=== PATIENT | male | born 1945 | race Caucasian/White ===

== ENCOUNTER 2023-02-25 21:48 | Inpatient (IN) | payer OTHER ==
[~2023-02-25] VITALS: Ht 177.8 cm; Wt 50.5 kg
[2023-02-25] MEDS ORDERED: ASPIR 8181 M1 PO (22:34)
[2023-02-25] MEDS ORDERED: Lisinopril2.5 MG PO (22:34)
[2023-02-25] MEDS ORDERED: JARDIANCE10 MG PO (22:34)
[2023-02-25] MEDS ORDERED: ATOR10 PO (22:35)
[2023-02-25] MEDS ORDERED: GLIP2.5ER PO (22:35)
[2023-02-25] MEDS ORDERED: METF500 PO (22:36)
[2023-02-25 22:39] LABS: BASOPHILS ABSOLUTE AUTO 0.04 K/mm3 (0.00-0.23); BASOPHILS PERCENT AUTO 1 % (0-2); EOSINOPHILS ABSOLUTE AUTO 0.22 K/mm3 (0.00-0.68); EOSINOPHILS PERCENT AUTO 4 % (0-6); Hematocrit 33.6 % (37.0-53.0); Hemoglobin 10.4 g/dL (13.5-17.5); IMMATURE GRAN ABSOLUTE AUTO 0.01 K/mm3 (0.00-0.10); IMMATURE GRAN PERCENT AUTO 0 % (0-1); LYMPHOCYTES ABSOLUTE AUTO 1.53 K/mm3 (0.84-5.20); LYMPHOCYTES PERCENT AUTO 26 % (21-46); MONOCYTES ABSOLUTE AUTO 0.55 K/mm3 (0.16-1.47); MONOCYTES PERCENT AUTO 9 % (4-13); Mean Corpuscular HGB 27.7 pg (26.0-34.0); Mean Corpuscular Volume 89 fL (80-100); Mean Platelet Volume 10.1 fL (9.1-12.4); NEUTROPHILS ABSOLUTE AUTO 3.55 K/mm3 (1.96-9.15); NEUTROPHILS PERCENT AUTO 60 % (41-73); Platelet Count 177 K/mm3 (150-400); RDW Coefficient Variation 14.8 % (11.7-14.2); RDW Standard Deviation 47.7 fL (35.1-46.3); Red Blood Cell Count 3.76 M/mm3 (4.30-5.90)
[2023-02-25 22:41] LABS: Albumin, Blood 3.6 g/dL (3.4-5.0); Bilirubin, Total 0.2 mg/dL (0.1-1.0); Calcium, Blood 9.2 mg/dL (8.5-10.1); Creatinine, Blood 1.04 mg/dL (0.60-1.20); Globulin, Blood 3.6 g/dL (2.2-4.0); Potassium, Blood 4.3 mmol/L (3.5-5.5); Total Protein, Blood 7.2 g/dL (6.4-8.2)
[2023-02-26] VITALS (47 sets, daily range): BP systolic 104–158; BP diastolic 53–98
[2023-02-26 00:01] LABS: BASOPHILS ABSOLUTE AUTO 0.04 K/mm3 (0.00-0.23); BASOPHILS PERCENT AUTO 1 % (0-2); EOSINOPHILS ABSOLUTE AUTO 0.18 K/mm3 (0.00-0.68); EOSINOPHILS PERCENT AUTO 3 % (0-6); Hematocrit 31.5 % (37.0-53.0); Hemoglobin 9.9 g/dL (13.5-17.5); IMMATURE GRAN ABSOLUTE AUTO 0.02 K/mm3 (0.00-0.10); IMMATURE GRAN PERCENT AUTO 0 % (0-1); LYMPHOCYTES ABSOLUTE AUTO 1.08 K/mm3 (0.84-5.20); LYMPHOCYTES PERCENT AUTO 16 % (21-46); MONOCYTES ABSOLUTE AUTO 0.49 K/mm3 (0.16-1.47); MONOCYTES PERCENT AUTO 7 % (4-13); Mean Corpuscular HGB 27.8 pg (26.0-34.0); Mean Corpuscular HGB Conc 31.4 g/dL (31.5-36.5); Mean Corpuscular Volume 89 fL (80-100); Mean Platelet Volume 10.2 fL (9.1-12.4); NEUTROPHILS ABSOLUTE AUTO 4.87 K/mm3 (1.96-9.15); NEUTROPHILS PERCENT AUTO 73 % (41-73); Platelet Count 157 K/mm3 (150-400); RDW Coefficient Variation 14.8 % (11.7-14.2); Red Blood Cell Count 3.56 M/mm3 (4.30-5.90); White Blood Cell Count 6.68 K/mm3 (4.00-11.30)
[2023-02-26 00:25] LABS: D-Dimer, Quantitative 8.73 mg/L FEU (0.00-0.52); Prothrombin Time Results 10.5 Sec (9.7-11.5)
[2023-02-26 00:36] LABS: Albumin, Blood 3.4 g/dL (3.4-5.0); Albumin/Globulin Ratio 1.1 (0.8-1.8); Bilirubin, Total 0.2 mg/dL (0.1-1.0); Bun/Creatinine Ratio 24.7 (12.0-20.0); Calcium, Blood 8.7 mg/dL (8.5-10.1); Creatinine, Blood 0.97 mg/dL (0.60-1.20); Globulin, Blood 3.2 g/dL (2.2-4.0); Magnesium, Blood 1.7 mg/dL (1.6-2.4); Phosphorus, Blood 2.8 mg/dL (2.5-4.9); Potassium, Blood 4.4 mmol/L (3.5-5.5); Thyroid Stimulating Hormone 1.61 uIU/mL (0.360-4.800); Total Protein, Blood 6.6 g/dL (6.4-8.2)
[2023-02-26 03:09] LABS: Source, Urine Voided
[2023-02-26 03:11] LABS: BASOPHILS ABSOLUTE AUTO 0.06 K/mm3 (0.00-0.23); BASOPHILS PERCENT AUTO 1 % (0-2); EOSINOPHILS ABSOLUTE AUTO 0.26 K/mm3 (0.00-0.68); EOSINOPHILS PERCENT AUTO 3 % (0-6); Hematocrit 31.9 % (37.0-53.0); Hemoglobin 9.9 g/dL (13.5-17.5); IMMATURE GRAN ABSOLUTE AUTO 0.03 K/mm3 (0.00-0.10); IMMATURE GRAN PERCENT AUTO 0 % (0-1); LYMPHOCYTES ABSOLUTE AUTO 1.66 K/mm3 (0.84-5.20); LYMPHOCYTES PERCENT AUTO 18 % (21-46); MONOCYTES ABSOLUTE AUTO 0.66 K/mm3 (0.16-1.47); MONOCYTES PERCENT AUTO 7 % (4-13); Mean Corpuscular HGB 27.7 pg (26.0-34.0); Mean Corpuscular Volume 89 fL (80-100); Mean Platelet Volume 9.8 fL (9.1-12.4); NEUTROPHILS ABSOLUTE AUTO 6.48 K/mm3 (1.96-9.15); NEUTROPHILS PERCENT AUTO 71 % (41-73); Platelet Count 157 K/mm3 (150-400); RDW Coefficient Variation 14.6 % (11.7-14.2); RDW Standard Deviation 48.2 fL (35.1-46.3); Red Blood Cell Count 3.57 M/mm3 (4.30-5.90); White Blood Cell Count 9.15 K/mm3 (4.00-11.30)
[2023-02-26 03:23] LABS: Bilirubin, Urine Neg (Neg); Blood, Urine Neg (Neg); Glucose Qualitative, Urine 4+ (Neg); Ketones, Urine Neg (Neg); Leukocyte Esterase, Urine Neg (Neg); Nitrite, Urine Neg (Neg); Protein, Urine 1+ (Neg); Specific Gravity, Urine 1.015 (1.003-1.022); Urobilinogen, Urine NORM (Normal)
[2023-02-26 03:33] LABS: Appearance, Urine Clear (Clear); Color, Urine Yellow (P-Yellow)
[2023-02-26 03:38] LABS: Albumin, Blood 3.5 g/dL (3.4-5.0); Albumin/Globulin Ratio 1.1 (0.8-1.8); Bilirubin, Total 0.2 mg/dL (0.1-1.0); Bun/Creatinine Ratio 25.9 (12.0-20.0); Calcium, Blood 8.2 mg/dL (8.5-10.1); Creatinine, Blood 0.85 mg/dL (0.60-1.20); Globulin, Blood 3.1 g/dL (2.2-4.0); Magnesium, Blood 1.6 mg/dL (1.6-2.4); Total Protein, Blood 6.6 g/dL (6.4-8.2)
--- NOTE | 2023-02-26 06:53 | NUR ---
ADMIT NOTE/SHIFT SUMMARY PT ARRIVED TO ICU VIA HOSPITAL BED AT APPROX 0445, TRANSFERRED TO ICU BED VIA SLIDER SHEET. PT SLEEPY BUT AROUSABLE, ABLE TO ANSWER SOME QUESTIONS AND FOLLOW COMMANDS. PT IS POOR HISTORIAN. HR 80-90'S AFIB, MAP >65. PT ON RA, OXYGEN SATURATION >95%. PT COMPLAINING OF INTERMITENT PAIN BEHIND EYES. CALL PLACED TO MD SOW, ORDER RECEIVED FOR Q1-Q2 NEURO CHECKS FOR THE FIRST 3-4 HOURS, THEN Q4H IF UNCHANGED. PT TAKEN FOR REPEAT HEAD CT, RADIOLOGIST NOTIFIED RN TO HAVE HOSPITALIST CALL HIM FOR RESULTS. SEE EMAR. PIV TO LAC SL. PT ORIENTED TO ROOM, BED ALARM ON, BED IN LOWEST POSITON, CALL LIGHT WITHIN REACH. CARE CONTINUES.
--- NOTE | 2023-02-26 08:05 | NUR ---
INITIAL ASSESSMENT PATIENT SLEEPING SOUNDLY UPON ENTERING ROOM. PATIENT WAKES TO VERBAL STIMULI. PATIENT SLIGHTLY WEAK BUT ABLE TO MOVE ALL EXTREMITIES. PATIENT UNABLE TO VOID LYING DOWN SO HELPED TO STAND AT BEDSIDE. PATIENT LEANING FORWARD WHILE STANDING UP AND WOULD HAVE FELL IF STAFF NOT ASSISTING. PATIENT ORIENTED TO SELF, DATE, HOSPITAL AND YEAR. PATIENT DID NOT KNOW TOWN OR MONTH. STATES THAT PATIENT IS NORMALLY A&O X 4. PATIENT WEARS HEARING AIDES AT BASELINE; AT HOME PER . PATIENT AFEBRILE. PATIENT DENIES PAIN AT THIS TIME. PATIENT SATTING 90% AND GREATER ON RA. LUNGS DIMINISHED THROUGHOUT. SHALLOW BREATHS NOTED. PATIENT IN A. FIB, HR 70S TO 1-TEENS. SBP 140S TO 150S. SCDS PLACED. DATE OF LAST BM UNKNOWN. 2ND TOE ON L FOOT AMPUTATED. COCCYX/ SACRUM RED; NONBLANCHEABLE. SKIN PALE AND FRAGILE. PATIENT RECIEVING ANOTHER IV AT THIS TIME SO LR CAN BE RESUMED AT 75 MLS/ HOUR. BED LOW, CALL LIGHT IN REACH. CARE CONTINUES.
[2023-02-26] MEDS ORDERED: OMEP20ER PO (11:46)
[2023-02-26] MEDS ORDERED: WEGOVY0.25 MG/0. SC (11:48)
[2023-02-26] MEDS ORDERED: THERA-D2000 UNIT PO (11:52)
[2023-02-26] MEDS ORDERED: ZOLP5 PO (11:55)
[2023-02-26] MEDS ORDERED: NITR.4SL SL (11:56)
[2023-02-26] MEDS ORDERED: ARTIFICIAL TEAR15 M2 BOTHEYES (11:57)
--- NOTE | 2023-02-26 12:20 | NUR ---
PATIENT AFEBRILE. NO CHANGES IN NEURO FUNCTION. HR 80S TO 90S. SBP 120S TO 130S. BLOOD SUGAR 107; NO COVERAGE INDICATED. NO OTHER ACUTE CHANGES TO NOTE ON AT THIS TIME. CARE CONTINUES.
--- NOTE | 2023-02-26 16:00 | NUR ---
PATIENT AFEBRILE. HR IN THE 80S. SBP 120S TO 130S. NO NEURO STATUS CHANGES. NO ACUTE CHANGES TO NOTE ON. CARE CONTINUES.
--- NOTE | 2023-02-26 18:05 | NUR ---
SHIFT SUMMARY PATIENT REMAINED ALERT AND ORIENTED EXCEPT TO MONTH AND TOWN. PATIENT NAPPED MOST OF THE DAY. PATIENT REMAINED CALM, PLEASANT AND COOPERATIVE. PATIENT REMAINED WEAK AND NEEDED ASSISTANCE TO TURN AND STAND TO URINATE IN URINAL. WHEN STANDING PATIENT DENIES FEELING DIZZY OR WEAK BUT CONTINUED TO LEAN FORWARD WHILE STANDING AND WOULD HAVE FALLEN FORWARD WITHOUT ASSISTANCE. PATIENT REMAINED AFEBRILE. PATIENT HAD NO COMPLAINTS OF PAIN DURING SHIFT. PATIENT REMAINED SATTING 90% AND GREATER ON RA. PATIETN REMAINED IN A. FIB, HR 70S TO 1-TEENS. SBP LOW 100S TO 150S. NO BM THIS SHIFT. PATIENT REMAINED NPO EXCEPT FOR SIPS OF WATER WITH MEDS AFTER PATIENT PASSED BEDSIDE RN SWALLOW TEST. PATIENT HAD COMPLETE CHG BEDBATH THIS SHIFT. MEPILEX PLACED TO REDDENED COCCYX. PATIENT REPOSITIONED Q2H. LR REMAINED INFUSING AT 75 MLS/ HOUR. HEAD CT PERFORMED THIS AM. ADMIT COMPLETED THIS SHIFT. BLOOD SUGARS 120 AND 107 THIS SHIFT. , GARRETT HERE TO SEE PATIENT TODAY. PATIENT HAS BEEN TRANSFERRED TO MEDICAL FLOOR, ROOM 305. CALLED AND INFORMED OF MOVE. ALL BELONGINGS SENT WITH PATIENT. TRANSFER COMPLETE.
--- NOTE | 2023-02-26 18:32 | NUR ---
NOTE: PATIENT ARRIVES TO ROOM AT 1810 FROM ICU RM 2 FOR DX'S OF SUBARCHNOID HEMMORHAGE. PATIENT IS AWAKE, ALERT AND ORIENTED TO SELF AND PLACED, BUT COULD NOT RECALL TO THE CURRENT SITUATIONS, DATES AND TOWN. PERRLA ROUND AND REACTIVE TO LIGHT. SENSATIONS INTACT AND STRENGTH ARE EQUALLY WEAK TO ALL EXTREMITIES. PIV TO L FOREARM INFUSING LR AT 75 MLS/HR. PATIENT CURRENTLY NPO c BS Q6. 105 BS TAKEN AT 1837. BED ALARM ON FOR SAFETY. CALL LIGHT IN REACH.
[2023-02-27 04:59] VITALS: BP 127/69
--- NOTE | 2023-02-27 06:26 | NUR ---
SHIFT SUMMARY; NO ACUTE CHANGES OVERNIGHT. THE PT IS AXO X2-3. UNSURE OF DATE AND PLACE AT TIMES. THE PT IS A 1 ASSIST AT THE BEDSIDE TO USE THE URINAL. THE PT IS IMPULSIVE, SO THE BED ALARM IS ON FOR SAFETY. PT IS COOPERATIVE OF CARE. THE PT VOIDED FREQUENTLY T/O THE NIGHT. THE PT DENIES ANY SOB, CHEST PAIN/PRESSURE, N/V OR PAIN. PT REMAINS NPO AT THIS TIME, Q6 BS DONE. CURRENTLY THE PT IS LAYING IN BED WITH THE BED IN THE LOWEST POSITION AND THE CALL LIGHT AT BEDSIDE. FIRE SAFETY ROUNDS COMPLETED.
[2023-02-27 10:00] VITALS: BP 138/95
[2023-02-27 15:44] VITALS: BP 127/87
--- NOTE | 2023-02-27 17:50 | NUR ---
SHIFT SUMMARY: PATIENT IS AWAKE, ALERT AND ORIENTED TO SELF, AND CUURENT LOCATIONS, BUT COULD NOT RECALL THE DATES. PATIENT IS CONFUSED AND FORGETFUL. PATIENT IS IMPULSIVE AND DOES NOT USES CALL LIGHT THIS SHIFT. PERRLA WNL, SENSATIONS INTACT AND STRENGTH ARE EUQALLY WEAK TO ALL EXTREMITIES. PATIENT IS VERY UNSTEADY ON HIS FEET AND HAS TENDENCY TO FALL BACK. PATIENT IS CONTINENCE OF BLADDER AND HAS BEEN AMBULATING TO BATHROOM AND BACK IN BED c 1ASSIST, FWW AND GAITBELT T/O SHIFT. PATIENT HAD PT EVAL THIS AFTERNOON, PT RECOMMENDED HH SERVICES. PATIENT ON REGULAR DIET, TOLERATING DIET WELL, WITHOUT ANY SIGN OR PROBLEMS SWALLOWING. PATIENT HAS NO IV ACCESS PER ORDER. RECEIVED SCHEDULED MEDS PER EMAR. MIPELEX DRESSING TO COCCYX C/D/I. VITAL SIGNS REVIEWED. BED ALARM ON FOR SAFETY. CALL LIGHT IN REACH.
[2023-02-27 20:19] VITALS: BP 116/75
[2023-02-28 03:33] VITALS: BP 118/68
--- NOTE | 2023-02-28 04:41 | NUR ---
SHIFT SUMMARY; NO ACUTE CHANGES OVERNIGHT. THE PT IS AXO X3 AND A 1 ASSIST TO USE THE URINAL AT BEDSIDE. THE PT IS VERY IMPULSIVE AND OFTEN TIMES GETS OUT OF BED TO GO PEE. THE PT VOIDS FREQUENTLY, 150-200MLS EACH TIME. THE PT DENIES ANY SOB, CHEST PAIN/PRESSURE, N/V OR PAIN T/O THE NIGHT. THE PT ANXIOUSLY AWAITS TO BE ABLE TO GO HOME. CURRENTLY THE PT IS LAYING IN BED WITH THE BED IN THE LOWEST POSITION, THE BED ALARM ON AND THE CALL LIGHT WITHIN REACH. FIRE SAFETY ROUNDS COMPLETED.
[2023-02-28 07:34] VITALS: BP 117/71
--- NOTE | 2023-02-28 11:45 | NUR ---
PATIENT DISCHARGED TO HOME ACCOMPANIED BY HIS . NO IV OR TELEMETRY. VERBALIZED UNDERSTANDING OF D/C INSTRUCTIONS. HOME HEALTH TO FOLLOW. OFF UNIT VIA W/C AT 1140. NO PERSONAL BELONGINGS LEFT BEHIND IN ROOM.
== END 2023-02-28 11:36 | disposition home health service (06) | DRG 87 ==
LOC: ER 21:48 → ERHOLD 02-26 02:21 → MEDS 02-26 02:21 → ICUE 02-26 04:45 → MEDS 02-26 18:17 → ENPENDDIS 02-28 11:33 → MEDS 02-28 11:36
PROVIDERS: Emergency Medicine; Student in an Organized Health Care Education/Training Program; ADMIT Student in an Organized Health Care Education/Training Program
DX: S06.6X1A Traumatic subarachnoid hemorrhage with loss of consciousness of 30 minutes or less, initial encounter (principal); W18.39XA Other fall on same level, initial encounter; E11.9 Type 2 diabetes mellitus without complications; E78.5 Hyperlipidemia, unspecified; I10 Essential (primary) hypertension; R40.2362 Coma scale, best motor response, obeys commands, at arrival to emergency department; R40.2142 Coma scale, eyes open, spontaneous, at arrival to emergency department; R40.2242 Coma scale, best verbal response, confused conversation, at arrival to emergency department; Z79.82 Long term (current) use of aspirin; Z79.84 Long term (current) use of oral hypoglycemic drugs
CPT/HCPCS: 70450; 80053; 82947; 83735; 84100; 84443; 84484; 85025; 85379; 85610; 85730; 93005; 93010; 97116; 97162; 97530; 99285-25; A9270; J7120

== ENCOUNTER 2023-03-08 09:59 | Emergency (ER) | payer OTHER ==
[~2023-03-08] VITALS: Ht 170.2 cm; Wt 54.4 kg
[~2023-03-08 09:59] MED LIST: ARTIFICIAL TEAR15 M2 BOTHEYES; ASPIR 8181 M1 PO; ATOR10 PO; GLIP2.5ER PO; JARDIANCE10 MG PO; Lisinopril2.5 MG PO; METF500 PO; NITR.4SL SL; OMEP20ER PO; THERA-D2000 UNIT PO; WEGOVY0.25 MG/0. SC; ZOLP5 PO
[2023-03-08 11:02] LABS: Albumin, Blood 2.9 g/dL (3.4-5.0); Albumin/Globulin Ratio 0.7 (0.8-1.8); Bilirubin, Total 0.4 mg/dL (0.1-1.0); Bun/Creatinine Ratio 29.7 (12.0-20.0); Calcium, Blood 8.8 mg/dL (8.5-10.1); Creatinine, Blood 0.81 mg/dL (0.60-1.20); Globulin, Blood 3.9 g/dL (2.2-4.0); Potassium, Blood 4.9 mmol/L (3.5-5.5); Total Protein, Blood 6.8 g/dL (6.4-8.2)
[2023-03-08 11:27] LABS: BASOPHILS ABSOLUTE AUTO 0.06 K/mm3 (0.00-0.23); BASOPHILS PERCENT AUTO 1 % (0-2); EOSINOPHILS ABSOLUTE AUTO 0.18 K/mm3 (0.00-0.68); EOSINOPHILS PERCENT AUTO 2 % (0-6); Hematocrit 33.4 % (37.0-53.0); Hemoglobin 10.3 g/dL (13.5-17.5); IMMATURE GRAN ABSOLUTE AUTO 0.03 K/mm3 (0.00-0.10); IMMATURE GRAN PERCENT AUTO 0 % (0-1); LYMPHOCYTES ABSOLUTE AUTO 1.09 K/mm3 (0.84-5.20); LYMPHOCYTES PERCENT AUTO 14 % (21-46); MONOCYTES ABSOLUTE AUTO 0.48 K/mm3 (0.16-1.47); MONOCYTES PERCENT AUTO 6 % (4-13); Mean Corpuscular HGB 27.5 pg (26.0-34.0); Mean Corpuscular HGB Conc 30.8 g/dL (31.5-36.5); Mean Corpuscular Volume 89 fL (80-100); Mean Platelet Volume 9.5 fL (9.1-12.4); NEUTROPHILS ABSOLUTE AUTO 6.05 K/mm3 (1.96-9.15); NEUTROPHILS PERCENT AUTO 77 % (41-73); Platelet Count 318 K/mm3 (150-400); RDW Coefficient Variation 14.9 % (11.7-14.2); RDW Standard Deviation 48.2 fL (35.1-46.3); Red Blood Cell Count 3.74 M/mm3 (4.30-5.90); White Blood Cell Count 7.89 K/mm3 (4.00-11.30)
[2023-03-08 13:46] VITALS: BP 115/72
== END 2023-03-08 13:47 | disposition home or self-care (01) ==
LOC: ER 09:59
PROVIDERS: Family Medicine
DX: R41.82 Altered mental status, unspecified (principal); I10 Essential (primary) hypertension; E11.9 Type 2 diabetes mellitus without complications; Z79.899 Other long term (current) drug therapy; Z79.84 Long term (current) use of oral hypoglycemic drugs
CPT/HCPCS: 70450; 73030; 80053; 85025; 99285-25

== ENCOUNTER 2023-09-22 13:38 | Day surgery (SDC) | payer OTHER ==
[~2023-09-22] VITALS: Ht 177.8 cm; Wt 58.0 kg
[~2023-09-22 13:38] MED LIST changes: +ALOGLIPTIN25 M1; +ATOR80 PO; +Aspir 8181 MG PO; +Atropine Sulfate 0.1 MG/ML 10ML SYR ONE; +DOXEPIN HCL3 MG PO; +GLIP5; +Glycopyrrolate 0.2 MG/ML 1MLVIAL ONE; +JARDIANCE25 MG PO; +Lactated Ringer's 1,000 ML IV ONE; +Lactated Ringer's 1,000 ML ONE; +Lidocaine 2% 5 ML SDV ONE; +Lidocaine HCl/Pf 1% 5 ML VIAL ONE; +METO25ER; +Methylene Blue 1% 100 MG/10 ML VIAL ONE; +Ondansetron HCl 2 MG / ML 2ML Vial ONE; +Prinivil10 MG; +ePHEDrine Sulfate 50 MG/ML 1ML Injection ONE
[2023-09-22] MEDS ORDERED: JARDIANCE25 MG (14:38)
[2023-09-22] MEDS ORDERED: BASAGLAR K100 UNIT/1 (14:38)
[2023-09-22] MEDS ORDERED: Vitamin B-12100 MCG (14:39)
[2023-09-22 14:43] VITALS: BP 151/88
[2023-09-22] MEDS ORDERED: Lactated Ringer's 1,000 ML IV ONE (15:00)
[2023-09-22] MEDS ORDERED: Lidocaine HCl 4% 5 ML SDA ONE (15:29)
[2023-09-22] MEDS ORDERED: propofoL 50 ML IV ONE (15:31)
--- NOTE | 2023-09-22 17:09 | NUR ---
09/22/23 1709 CHELSEA TRACY PROCEDURE WAS ABORTED PRIOR TO STARTING PT WAS IN A-FIB. DR. CUNHA HAD NOT GIVEN HIM ANY SEDATION. PT DID HAVE LIDOCAINE SPRAY ORALLY TO HELP NUMB THE THROAT FOR EASY EGD. IN TIME WAS 1532 TIME OUT WAS 1535 OUT OF OR WAS 1604
--- NOTE | 2023-09-22 17:18 | NUR ---
09/22/23 1718 CHELSEA TRACY PT TAKEN TO ER FOR EVAL OF AFIB. ACCOMPANIED PT.
== END 2023-09-22 16:30 | disposition home or self-care (01) ==
LOC: ORSCSDS 13:38
PROVIDERS: Specialist
PROC: 0DJD8ZZ Inspection of Lower Intestinal Tract, Via Natural or Artificial Opening Endoscopic (ICD-10-PCS; principal; 2023-09-22 15:15)
DX: D50.9 Iron deficiency anemia, unspecified (principal); I48.91 Unspecified atrial fibrillation; Z53.8 Procedure and treatment not carried out for other reasons
CPT/HCPCS: 82947; J0461; J2001; J2405; J2704; J7120; Q9968

== ENCOUNTER 2023-09-22 16:29 | Emergency (ER) | payer OTHER ==
[~2023-09-22] VITALS: Ht 177.8 cm; Wt 59.0 kg
[~2023-09-22 16:29] MED LIST changes: -Atropine Sulfate 0.1 MG/ML 10ML SYR ONE; +BASAGLAR K100 UNIT/1; -Glycopyrrolate 0.2 MG/ML 1MLVIAL ONE; +JARDIANCE25 MG; -Lactated Ringer's 1,000 ML IV ONE; -Lactated Ringer's 1,000 ML ONE; -Lidocaine 2% 5 ML SDV ONE; -Lidocaine HCl/Pf 1% 5 ML VIAL ONE; -Methylene Blue 1% 100 MG/10 ML VIAL ONE; -Ondansetron HCl 2 MG / ML 2ML Vial ONE; +Vitamin B-12100 MCG; -ePHEDrine Sulfate 50 MG/ML 1ML Injection ONE
[2023-09-22 16:43] VITALS: BP 141/77
[2023-09-22 18:04] LABS: Albumin, Blood 3.2 g/dL (3.4-5.0); Bilirubin, Total 0.3 mg/dL (0.1-1.0); Bun/Creatinine Ratio 19.2 (12.0-20.0); Calcium, Blood 7.8 mg/dL (8.5-10.1); Creatinine, Blood 0.84 mg/dL (0.60-1.20); Globulin, Blood 3.1 g/dL (2.2-4.0); Potassium, Blood 3.6 mmol/L (3.5-5.5); Total Protein, Blood 6.3 g/dL (6.4-8.2)
[2023-09-22 19:15] LABS: BASOPHILS ABSOLUTE AUTO 0.04 K/mm3 (0.00-0.23); BASOPHILS PERCENT AUTO 1 % (0-2); EOSINOPHILS ABSOLUTE AUTO 0.31 K/mm3 (0.00-0.68); EOSINOPHILS PERCENT AUTO 6 % (0-6); Hematocrit 34.4 % (37.0-53.0); Hemoglobin 10.4 g/dL (13.5-17.5); IMMATURE GRAN ABSOLUTE AUTO 0.01 K/mm3 (0.00-0.10); IMMATURE GRAN PERCENT AUTO 0 % (0-1); LYMPHOCYTES PERCENT AUTO 20 % (21-46); MONOCYTES ABSOLUTE AUTO 0.55 K/mm3 (0.16-1.47); MONOCYTES PERCENT AUTO 10 % (4-13); Mean Corpuscular HGB 27.2 pg (26.0-34.0); Mean Corpuscular HGB Conc 30.2 g/dL (31.5-36.5); Mean Corpuscular Volume 90 fL (80-100); Mean Platelet Volume 10.3 fL (9.1-12.4); NEUTROPHILS ABSOLUTE AUTO 3.51 K/mm3 (1.96-9.15); NEUTROPHILS PERCENT AUTO 64 % (41-73); Platelet Count 198 K/mm3 (150-400); RDW Coefficient Variation 21.8 % (11.7-14.2); RDW Standard Deviation 69.4 fL (35.1-46.3); Red Blood Cell Count 3.83 M/mm3 (4.30-5.90); White Blood Cell Count 5.52 K/mm3 (4.00-11.30)
== END 2023-09-22 19:35 | disposition home or self-care (01) ==
LOC: ER 16:29
PROVIDERS: Nurse Practitioner
DX: I48.91 Unspecified atrial fibrillation (principal); E11.22 Type 2 diabetes mellitus with diabetic chronic kidney disease; I12.9 Hypertensive chronic kidney disease with stage 1 through stage 4 chronic kidney disease, or unspecified chronic kidney disease; N18.9 Chronic kidney disease, unspecified
CPT/HCPCS: 80053; 85025; 93005; 93010; 99284-25

== ENCOUNTER 2024-01-02 12:45 | Day surgery (SDC) | payer OTHER ==
[~2024-01-02] VITALS: Ht 177.8 cm; Wt 59.4 kg
[~2024-01-02 12:45] MED LIST changes: +Atropine Sulfate 0.1 MG/ML 10ML SYR ONE; +Glycopyrrolate 0.2 MG/ML 1MLVIAL ONE; +Lidocaine 2% 5 ML SDV ONE; +Lidocaine HCl/Pf 1% 5 ML VIAL ONE; +Methylene Blue 1% 100 MG/10 ML VIAL ONE; +Ondansetron HCl 2 MG / ML 2ML Vial ONE; +ePHEDrine Sulfate 50 MG/ML 1ML Injection ONE
[2024-01-02] MEDS ORDERED: Lactated Ringer's 1,000 ML IV ONE (13:30)
[2024-01-02] MEDS ORDERED: FentaNYL Citrate 50 MCG/ML 2 ML Injection ONE (13:57)
[2024-01-02] MEDS ORDERED: propofoL 50 ML IV ONE (13:57)
[2024-01-02] MEDS ORDERED: Midazolam HCL 1 MG/ML 5MLVIAL ONE (13:57)
[2024-01-02 15:16] VITALS: BP 109/68
== END 2024-01-02 15:30 | disposition home or self-care (01) ==
LOC: ORSCSDS 12:45
PROVIDERS: Specialist
PROC: 0DB98ZX Excision of Duodenum, Via Natural or Artificial Opening Endoscopic, Diagnostic (ICD-10-PCS; principal; 2024-01-02 15:00)
PROC: 0DBK8ZX Excision of Ascending Colon, Via Natural or Artificial Opening Endoscopic, Diagnostic (ICD-10-PCS; principal; 2024-01-02 15:00)
DX: D50.9 Iron deficiency anemia, unspecified (principal); D12.2 Benign neoplasm of ascending colon; K64.8 Other hemorrhoids; K57.30 Diverticulosis of large intestine without perforation or abscess without bleeding; N18.30 Chronic kidney disease, stage 3 unspecified; E13.22 Other specified diabetes mellitus with diabetic chronic kidney disease; I12.9 Hypertensive chronic kidney disease with stage 1 through stage 4 chronic kidney disease, or unspecified chronic kidney disease; I48.91 Unspecified atrial fibrillation; I25.10 Atherosclerotic heart disease of native coronary artery without angina pectoris; I25.2 Old myocardial infarction; Z95.1 Presence of aortocoronary bypass graft; Z79.82 Long term (current) use of aspirin; Z79.4 Long term (current) use of insulin; Z79.84 Long term (current) use of oral hypoglycemic drugs; Z79.899 Other long term (current) drug therapy; Z87.891 Personal history of nicotine dependence
CPT/HCPCS: 82947; 88305; 88342; J0461; J2001; J2250; J2405; J2704; J3010; Q9968

== ENCOUNTER 2024-06-08 11:02 | Day surgery (SDC) | payer OTHER ==
[2024-06-08] VITALS (12 sets, daily range): BP systolic 122–148; BP diastolic 64–79
[~2024-06-08] VITALS: Ht 177.8 cm; Wt 58.2 kg
[~2024-06-08 11:02] MED LIST changes: -Atropine Sulfate 0.1 MG/ML 10ML SYR ONE; +FURO20 PO; +GLIP5 PO; -Glycopyrrolate 0.2 MG/ML 1MLVIAL ONE; +INSULANI; -Lidocaine 2% 5 ML SDV ONE; -Lidocaine HCl/Pf 1% 5 ML VIAL ONE; +MECL12.5 PO; -METO25ER; +METO25ER PO; -Methylene Blue 1% 100 MG/10 ML VIAL ONE; -Ondansetron HCl 2 MG / ML 2ML Vial ONE; -Prinivil10 MG; +Prinivil10 MG PO; -ePHEDrine Sulfate 50 MG/ML 1ML Injection ONE
[2024-06-08] MEDS ORDERED: Lactated Ringer's 1,000 ML IV SCH (11:45)
[2024-06-08] MEDS ORDERED: CeFAZolin Sodium 2,000 MG in NS 100 ML IV SCH (11:45)
[2024-06-08] MEDS ORDERED: CeFAZolin Sodium 2,000 MG VIAL ONE (11:58)
--- NOTE | 2024-06-08 12:18 | NUR ---
Ambulatory in Day Surgery History, Chart, Medications and Allergies reviewed before start of procedure. Pre-Op teaching done. Pt verbalizes understanding. Patient States Post-Procedure ride home has been arranged.
[2024-06-08] MEDS ORDERED: Dexamethasone Sod Phos 10 MG/ML 1ML VIAL ONE (13:18)
[2024-06-08] MEDS ORDERED: Rocuronium Bromide 10 MG/ML 5ML Injection IV ONE (13:18)
[2024-06-08] MEDS ORDERED: Ketorolac Tromethamine 30mg Vial ONE (13:18)
[2024-06-08] MEDS ORDERED: Ondansetron HCl 2 MG / ML 2ML Vial ONE (13:18)
[2024-06-08] MEDS ORDERED: propofoL 20 ML IV ONE (13:19)
[2024-06-08] MEDS ORDERED: FentaNYL Citrate 50 MCG/ML 5 ML Injection ONE (13:19)
[2024-06-08] MEDS ORDERED: Sugammadex Sodium 200 MG/2ML SDV (100 MG/ML) ONE (13:19)
[2024-06-08] MEDS ORDERED: Bupivacaine 0.5% HCl 5 MG/ML 30MLVIAL ONE (14:40)
[2024-06-08] MEDS ORDERED: Metoclopramide HCl 5MG / ML 2ML Vial ONE (14:53)
[2024-06-08] MEDS ORDERED: OxyCODONE 5 mg/Acetamin 325 mg TABLET PO PRN (17:45)
== END 2024-06-08 23:00 | disposition home or self-care (01) ==
LOC: ORSCMMR 11:02 → ORD 12:45 → ORSCMMR 23:00
PROVIDERS: Surgery
PROC: 8E0W4CZ Robotic Assisted Procedure of Trunk Region, Percutaneous Endoscopic Approach (ICD-10-PCS; principal; 2024-06-08 14:00)
PROC: 0WUF4JZ Supplement Abdominal Wall with Synthetic Substitute, Percutaneous Endoscopic Approach (ICD-10-PCS; principal; 2024-06-08 14:00)
PROC: 0YU74JZ Supplement Right Femoral Region with Synthetic Substitute, Percutaneous Endoscopic Approach (ICD-10-PCS; principal; 2024-06-08 14:00)
PROC: 0YUA4JZ Supplement Bilateral Inguinal Region with Synthetic Substitute, Percutaneous Endoscopic Approach (ICD-10-PCS; principal; 2024-06-08 14:00)
DX: K40.20 Bilateral inguinal hernia, without obstruction or gangrene, not specified as recurrent (principal); K41.30 Unilateral femoral hernia, with obstruction, without gangrene, not specified as recurrent; K45.0 Other specified abdominal hernia with obstruction, without gangrene; I10 Essential (primary) hypertension; E11.9 Type 2 diabetes mellitus without complications; I25.10 Atherosclerotic heart disease of native coronary artery without angina pectoris; Z79.4 Long term (current) use of insulin; Z79.899 Other long term (current) drug therapy; Z79.84 Long term (current) use of oral hypoglycemic drugs
CPT/HCPCS: 82947; 88304; C1781; J0690; J1100; J1885; J2405; J2704; J2765; J3010; J7120